=== PATIENT | male | born 1970 | race Caucasian/White ===

== ENCOUNTER 2024-08-13 10:02 | Inpatient (IN) | payer SELFPAY ==
--- NOTE | 2024-08-13 10:16 | PC.PHAR ---
Spoke with [facility] [phone]-They have no allergies and no home medications for this pt, who has been there twice. Nothing administered during his stay.
--- NOTE | 2024-08-13 10:22 | ED.C_ITS ---
HPI - Psych 2 General: Chief Complaint: Psychiatric Symptoms Stated Complaint: 96 Hold, Time Seen by Provider: 08/13/24 10:05 History of Present Illness: 54-year-old man [facility] with police from [facility]. Apparently while he was there he was having tangential and repetitive speech. He was repeating that he was going to . He had some sort of seizure-like activity. He has been placed on a 96-hour hold by the spinning machine tender. Related Data Home Medications Medication Instructions Recorded Confirmed No Known Home Medications 08/13/24 08/13/24 Allergies Allergy/AdvReac Type Severity Reaction Status Date / Time No Known Allergies Allergy Unverified 08/13/24 10:15 Review of Systems 2 General: Reports: ROS unobtainable due to medical condition and ROS unobtainable due to mental status Physical Exam 2 Narrative: EXAM NARRATIVE: General: Alert. no acute distress Skin: Warm, dry Head: Normocephalic, atraumatic. Neck: Supple, trachea midline. Eye: Extraocular movements are intact. Ears, nose, mouth and throat: Oral mucosa moist. Cardiovascular: Regular rate and rhythm, Normal peripheral perfusion. Respiratory: Lungs are clear to auscultation, respirations are non-labored, breath sounds are equal, Symmetrical chest wall expansion. Gastrointestinal: Soft, Nontender, Non distended, Normal bowel sounds. Musculoskeletal: Normal ROM, no deformity. Neurological: Not Alert and oriented to person, place, time, and situation, No focal neurological deficit observed. Psychiatric: confused, agitated. flight of ideas Course 2 Vital Signs: Vital signs: Vital Signs Temperature 98.2 F 08/13/24 10:23 Pulse Rate 94 08/13/24 10:23 Respiratory Rate 18 08/13/24 10:23 Blood Pressure 180/100 08/13/24 10:23 Pulse Oximetry 95 08/13/24 10:23 Oxygen Delivery Me thod Room Air 08/13/24 10:23 MDM - Psych Medical Decision Making Medical decision making: Differential diagnosis for patient with reported psychosis with plan for psychiatric admission including but not limited to and based on the above HPI, review of systems and physical exam: concerns for infection, alcohol intoxication, cardiac issues or other medical problems prior to psychiatric admission. Orders placed to evaluate differential diagnosis based on the above differential, HPI and physical exam labwork, ekg ordered to evaluate the pathologies and to clear the patient medically prior to psychiatric admission Lab Review: Laboratory results were reviewed and interpreted by myself the emergency room physician. - Medically cleared. - EKG shows no ischemic changes. - Blood alcohol level is negative, as well as salicylate and Tylenol. - Drug screen is positive for marijuana only - No signs of infection, urinalysis clear and white count is not elevated - No anemia. - BUN and creatinine are within normal limits. I reviewed the patient's medical record. Consultation: I spoke Dr. Navarrete who is on-call for psychiatry who agrees to admission. Assessment and plan: Psychosis ? Ativan and Geodon were given in the emergency room. -Admission to neuropsychiatric unit for continued evaluation and treatment. - All lab work was reviewed and interpreted personally by myself, the ER physician - Evaluation and treatment of this problem were appropriate in the emergency setting Lab Data 08/13/24 12:09 08/13/24 12:09 Laboratory Results WBC 12.04 10^3/uL (3.29-11.43) H 08/13/24 12:09 RBC 5.05 10^6/uL (3.85-5.65) 08/13/24 12:09 Hgb 15.50 g/dL (11.27-16.99) 08/13/24 12:09 Hct 46.4 % (37-53) 08/13/24 12:09 MCV 91.9 fl (82-101) 08/13/24 12:09 MCH 30.7 pg (27-33) 08/13/24 12:09 MCHC 33.4 g/dL (30-55) 08/13/24 12:09 RDW 13.0 % (12.1-15.1) 08/13/24 12:09 Plt Count 447 10^3/cmm (157-399) H 08/13/24 12:09 MPV 9.7 fL (7.4-10.4) 08/13/24 12:09 Neut % (Auto) 74.0 % 08/13/24 12:09 Lymph % (Auto) 17.8 % 08/13/24 12:09 [place] % (Auto) 6.9 % 08/13/24 12:09 Eos % (Auto) 0.2 % 08/13/24 12:09 Baso % (Auto) 0.9 % 08/13/24 12:09 Neut # (Auto) 8.91 10^3/uL (1.8-7.7) H 08/13/24 12:09 Lymph # (Auto) 2.1 10^3/uL (0.8-4.8) 08/13/24 12:09 [place] # (Auto) 0.8 10^3/uL (0.2-0.9) 08/13/24 12:09 Eos # (Auto) 0.0 10^3/uL (0.0-0.8) 08/13/24 12:09 Baso # (Auto) 0.1 10^3/uL (0.0-0.1) 08/13/24 12:09 Nucleated RBC % (auto) 0 % 08/13/24 12:09 Nucleated RBCs # 0.0 /100WBC 08/13/24 12:09 Sodium 141 mmol/L (136-145) 08/13/24 12:09 Potassium 3.9 mmol/L (3.5-5.1) 08/13/24 12:09 Chloride 107 mmol/L (98-107) 08/13/24 12:09 Carbon Dioxide 25 mmol/L (22-29) 08/13/24 12:09 Anion Gap 12.9 (5-19) 08/13/24 12:09 BUN 9 mg/dL (6-20) 08/13/24 12:09 Creatinine 0.8 mg/dL (0.7-1.2) 08/13/24 12:09 GFR Calculation 101.5 mL/min (90-130) 08/13/24 12:09 Glucose 95 mg/dL (65-115) 08/13/24 12:09 Calculated Osmolality 290 mOsm/kg (285-295) 08/13/24 12:09 Calcium 9.1 mg/dL (8.5-10.5) 08/13/24 12:09 Total Bilirubin 0.2 mg/dL (0.15-1.2) 08/13/24 12:09 AST 9 U/L (0-40) 08/13/24 12:09 ALT 10 U/L (0-41) 08/13/24 12:09 Alkaline Phosphatase 89 U/L (40-130) 08/13/24 12:09 Total Protein 6.4 g/dL (6.6-8.7) L 08/13/24 12:09 Albumin 4.2 g/dL (3.5-5.2) 08/13/24 12:09 Globulin 2.2 g/dL (1.3-4.6) 08/13/24 12:09 TSH 1.88 uIU/mL (0.27-4.20) 08/13/24 12:09 Urine Color Yellow (Yellow) 08/13/24 11:36 Urine Appearance Clear (CLEAR) 08/13/24 11:36 Urine pH 5.5 (5-7) 08/13/24 11:36 Ur Specific [place] 1.013 (1.005-1.030) 08/13/24 11:36 Urine Protein Negative (Negative) 08/13/24 11:36 Urine Glucose (UA) Negative (Normal) 08/13/24 11:36 Urine Ketones Negative (Negative) 08/13/24 11:36 Urine Blood Negative (Negative) 08/13/24 11:36 Urine Nitrate Negative (Negative) 08/13/24 11:36 Urine Bilirubin Negative (Negative) 08/13/24 11:36 Urine Urobilinogen 0.2 mg/dL (Negative) 08/13/24 11:36 Ur Leukocyte Esterase Negative (Negative) 08/13/24 11:36 Urine RBC 0-2 /hpf (0-2) 08/13/24 11:36 Urine WBC 0-5 /hpf (0-5) 08/13/24 11:36 Ur Squamous Epith Cells 0-5 /hpf (0-5) 08/13/24 11:36 Amorphous Sediment Not Reportable 08/13/24 11:36 Urine Bacteria None seen /hpf (NONE) 08/13/24 11:36 Hyaline Casts 0.40 /lpf 08/13/24 11:36 Salicylates < 0.3 mg/dL (3-10) L 08/13/24 12:09 Urine Opiates Screen Negative ng/mL (Negative) 08/13/24 11:36 Acetaminophen < 5.0 ug/mL (10-30) L 08/13/24 12:09 Ur Barbiturates Screen Negative ng/mL (Negative) 08/13/24 11:36 Ur Phencyclidine Scrn Negative ng/mL (Negative) 08/13/24 11:36 Ur Amphetamines Screen Negative ng/mL (Negative) 08/13/24 11:36 U Benzodiazepines Scrn Negative ng/mL (Negative) 08/13/24 11:36 Urine Cocaine Screen Negative ng/mL (Negative) 08/13/24 11:36 U Marijuana (THC) Screen Positive ng/mL (Negative) H 08/13/24 11:36 Ethyl Alcohol < 10 mg/dL (0-10) 08/13/24 12:09 No radiology studies performed this visit Discharge Plan Discharge Patient Disposition: Admitted As Inpatient Clinical Impression: Acute psychosis Condition: Stable Coding Level of Care Code ED Manager Data Warehousing for Sharmaine Gutierrez
[2024-08-13 10:23] VITALS: BP 180/100; PULSE 94; RESP 18; TEMP 36.8; O2SAT 95
[2024-08-13] MEDS: LORazepam 2 mg/mL INJ 1 mL IM (10:32)
[2024-08-13] MEDS: ziprasidone 20 mg/mL SDV IM (10:32)
[2024-08-13] MEDS: water for injection-sterile 10 ML 1.2 ML (10:33)
--- NOTE | 2024-08-13 11:11 | ECG_ITS ---
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
[2024-08-13 12:01] LABS: Bilirubin Urine Negative (Negative); Blood Urine Negative (Negative); Glucose Urine UA Negative (Normal); Ketones Urine Negative (Negative); Leukocyte Esterase Urine Negative (Negative); Nitrate Urine Negative (Negative); Protein Urine Negative (Negative); Specific Gravity, Urine 1.013 (1.005-1.030); Urine Appearance Clear (CLEAR); Urine Color Yellow (Yellow); Urobilinogen Urine 0.2 mg/dL (Negative); pH Urine 5.5 (5-7)
[2024-08-13 12:04] LABS: Bacteria Urine None Seen /hpf; RBC Urine 0-2 /hpf (0-2); Squamous Epithelial Cell Urine 0-5 /hpf (0-5); WBC Urine 0-5 /hpf (0-5)
[2024-08-13 12:08] LABS: Amphetamines Screen Urine Negative (Negative); Barbiturates Screen Urine Negative (Negative); Benzodiazepines Screen Urine Negative (Negative); Cocaine Screen Urine Negative (Negative); Opiate Screen Urine Negative (Negative); PCP Screen Urine Negative (Negative); THC Screen Urine Positive (Negative)
[2024-08-13 12:43] LABS: Basophils # 0.1 10^3/uL (0.0-0.1); Basophils % 0.9 %; Eosinophils % 0.2 %; Hematocrit 46.4 % (37-53); Lymphocytes # 2.1 10^3/uL (0.8-4.8); Lymphocytes % 17.8 %; Mean Corpuscular HGB Conc 33.4 g/dL (30-55); Mean Corpuscular Hemoglobin 30.7 pg (27-33); Mean Corpuscular Volume 91.9 fl (82-101); Mean Platelet Volume 9.7 fL (7.4-10.4); Monocytes # 0.8 10^3/uL (0.2-0.9); Monocytes % 6.9 %; Neutrophils # 8.91 10^3/uL (1.8-7.7); Nucleated Red Blood Cells % 0 %; Platelet Count 447 10^3/cmm (157-399); Red Blood Count 5.05 10^6/uL (3.85-5.65); White Blood Count 12.04 10^3/uL (3.29-11.43)
[2024-08-13 13:11] LABS: Alanine Aminotransferase 10 U/L (0-41); Albumin Level 4.2 g/dL (3.5-5.2); Alkaline Phosphatase 89 U/L (40-130); Anion Gap 12.9 (5-19); Aspartate Amino Transferase 9 U/L (0-40); Blood Urea Nitrogen 9 mg/dL (6-20); Calcium 9.1 mg/dL (8.5-10.5); Carbon Dioxide 25 mmol/L (22-29); Chloride 107 mmol/L (98-107); Globulin 2.2 g/dL (1.3-4.6); Glomerular Filtration Rate 101.5 mL/min (90-130); Glucose 95 mg/dL (65-115); Osmolality Calculated 290 mOsm/kg (285-295); Potassium 3.9 mmol/L (3.5-5.1); Sodium 141 mmol/L (136-145); Thyroid Stimulating Hormone 1.88 uIU/mL (0.27-4.20); Total Bilirubin 0.2 mg/dL (0.15-1.2); Total Protein 6.4 g/dL (6.6-8.7)
[2024-08-13 13:12] LABS: Acetaminophen < 5.0 ug/mL (10-30); Alcohol Level < 10 mg/dL (0-10); Salicylate < 0.3 mg/dL (3-10)
[2024-08-13 15:51] VITALS: BP 127/88; PULSE 92; O2SAT 98
[2024-08-13 16:00] VITALS: BP 136/93; PULSE 95; RESP 16; TEMP 36.9; O2SAT 98
[2024-08-13 16:07] VITALS: BP 127/88; PULSE 92; O2SAT 98
[2024-08-13 19:59] VITALS: BP 122/96; PULSE 108; RESP 18; TEMP 36.5; O2SAT 98
[2024-08-13] MEDS: OLANZapine 5 mg ODT PO (21:07)
[2024-08-13] MEDS: hyDROXYzine 25 mg Capsule 50 MG PO (21:07)
[2024-08-14] VITALS (9 sets, daily range): BP systolic 107–155; BP diastolic 74–103; PULSE 61–107; RESP 16–20; TEMP 36.6–36.7; O2SAT 97–99
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
--- NOTE | 2024-08-14 15:14 | PC.NURSE ---
PT REFUSED 1400 VITALS FOR THIS MATHEMATICS EDUCATION PROFESSOR. PT SAID I JUST WANT TO BE LEFT ALONE UNTIL YOU GET A DOCTOR IN HERE OR A FORMAL COMPLAINT FORM . RESPIRATIONS WERE OBTAINED AT 17. CHARGE NURSE NOTIFIED ABOUT PT REFUSING VITALS AND ABOUT WHAT HE SAID TO THIS MATHEMATICS EDUCATION PROFESSOR.
--- NOTE | 2024-08-14 17:24 | XRR_ITS ---
PROCEDURE INFORMATION: Exam: XR Left Humerus Exam date and time: 08/14/2024 5:50 PM Age: 54 years old Clinical indication: Pain; Upper arm; Left; Additional info: Fall/pain to left arm TECHNIQUE: Imaging protocol: Radiologic exam of the left humerus. Views: 2 or more views. COMPARISON: CR (CHEST, ) 08/14/2024 5:50 PM FINDINGS: Bones/joints: Normal. Soft tissues: Normal. XR/[place] [id number] IMPRESSION: No acute findings.
--- NOTE | 2024-08-14 17:24 | XRR_ITS ---
PROCEDURE INFORMATION: Exam: XR Left Shoulder Exam date and time: 08/14/2024 5:50 PM Age: 54 years old Clinical indication: Pain; Shoulder; Left; Additional info: Fall/pain to shoulder TECHNIQUE: Imaging protocol: Radiologic exam of the left shoulder. Views: 2 or more views. COMPARISON: CR ([facility], ) 08/14/2024 5:50 PM FINDINGS: Bones/joints: Normal. Soft tissues: Normal. XR/XR shoulder LT min 2V* [id number] IMPRESSION: No acute findings.
--- NOTE | 2024-08-14 17:24 | XRR_ITS ---
PROCEDURE INFORMATION: Exam: XR Left Hand Exam date and time: 08/14/2024 5:45 PM Age: 54 years old Clinical indication: Pain; Hand; Left; Additional info: Fall/pain to arm TECHNIQUE: Imaging protocol: Radiologic exam of the left hand. Views: 3 or more views. COMPARISON: No relevant prior studies available. FINDINGS: Bones/joints: Normal. Soft tissues: Normal. XR/XR hand LT min 3V* [id number] IMPRESSION: No acute findings.
--- NOTE | 2024-08-14 17:24 | XRR_ITS ---
PROCEDURE INFORMATION: Exam: XR Left Forearm Exam date and time: 08/14/2024 5:49 PM Age: 54 years old Clinical indication: Pain; Lower or forearm; Left; Additional info: Fall/pain to arm TECHNIQUE: Imaging protocol: Radiologic exam of the left forearm. Views: 2 views. COMPARISON: CR ([facility], ) 08/14/2024 5:45 PM FINDINGS: Bones/joints: Normal. Soft tissues: Normal. XR/XR forearm LT 2V [id number] IMPRESSION: No acute findings.
--- NOTE | 2024-08-14 17:28 | PC.NURSE ---
PT CONTINUED TO VOICE CONCERNS THAT I WANT TO LEAVE, AND HAVING SOMATIC COMPLAINTS. PT STATES HE DOES NOT FEEL WELL. LOCOMOTIVE CRANE OPERATOR HELPER OBTAINED VITALS AND ARE FOLLOWS 145/97 89 18 97% ON RA AT 1655. SECURITY THEN WENT TO PT ROOM TO SPEAK TO PT AND WHEN SECURITY WAS FINISHED HE WALKED DOWN THE PADILLA AND AT THAT TIME STAFF HEARD A LOUD THUD. ALL STAFF IMMEDIATELY RESPONDED PT WAS OBSERVED LAYING THE FLOOR HOLDING HIS LEFT ARM. PT WAS HEARD SPEAKING IN A CHILD LIKE VOICE STATING WHAT HAPPENED WHAT HAPPENED. RN ASKED IF HE FELL AND PT APPEARED TO BE CONFUSED AND STATED I DON'T SEE ANY BLOOD. PT CONTINUED TO HOLD HIS LEFT ARM WHILE HITTING BOTH HIS LEGS STATING I CAN'T FEEL MY LEGS. VITALS WERE OBTAINED POST FALL AT 1701 AND ARE FOLLOWS: 146/92 HR 83, RR 17 97% RA. PT WAS THEN ASSISTED TO THE BED BY SECURITY AND NPU STAFF. PT THEN STARTED YELLING OH MY GOD YOU SMASHED MY LEFT NUT. BLOOD GLUCOSE WAS OBTAINED AND IS 103. PT IMPROVED MORE STAFF CAME INTO ASSIST HIM. PT WAS ASKED WHAT MONTH IT WAS AND STATED GOBBLE GOBBLE. HYDROGRAPHY TEACHER WENT TO SIT WITH PT WHILE THIS RN NOTIFIED DR. WATT OF UNWITNESSED FALL. RN ASSESSED PT FOR INJURIES AND NONE WERE OBSERVED. NEW ORDERS WERE RECEIVED TO OBTAIN STAT CT OF HEAD AND XRAY OF LEFT HUMEROUS 2 VIEW, LEFT SHOULDER 3 VIEW, LEFT FOREARM 2 VIEW AND LEFT HAND 3 VIEW. LIFESTYLE DIRECTOR NOTIFIED. RADIOLOGY NOTIFIED TO SET UP TIME FOR SECURITY AND NPU STAFF TO BRING PT OVER FOR TEST. NPU FOLLOW UP CLERK WAS NOTIFIED VIA PHONE. PT WAS OBSERVED AMBULATING TO WHEELCHAIR WITHOUT ISSUE. PT WAS GIVEN DINNER TRAY AND ATE 100% [address] AND XRAY.
[2024-08-14 17:32] LABS: Glucose Point of Care 103 mg/dL (70-110)
--- NOTE | 2024-08-14 18:06 | PC.NURSE ---
Addendum entered by Bailey Randolph RN 08/14/24 18:08: PT RETURNED TO THE UNIT AT 1808 Original Note: PT STEPPED OFF UNIT FOR CT AT AROUND 1730.
--- NOTE | 2024-08-14 18:21 | PC.NURSE ---
BACK FROM CT AT 1808. CT CALLED AND STATED THAT THE CT COULD NOT BE COMPLETED DUE TO PT STATING IT MAKES ME FEEL LIKE I'M BEING RAPED. NOTIFIED DR. WATT THAT CT WAS UNOBTAINABLE. NEW ORDERS RECEIVED TO MONITOR NEUROLOGICAL STATUS Q 4 HOURS TIMES 24 HOURS. REPORT ANY CHANGES. EDUCATION PROVIDED TO PT AND STAFF.
--- NOTE | 2024-08-14 18:45 | PC.NURSE ---
when taking pt to CT and X RAY pt got freaked out about the CT pt then went down to X RAY and pt began to roll eyes in back of head and blink numerous times and stiffin up his limbs and body was still able to communicate with staff and this designer/writer preformed a sternal rub and pt responded and complied with the CT Scan.
[2024-08-14] MEDS: ondansetron 4 MG Tablet PO (21:03)
[2024-08-14] MEDS: hyDROXYzine 25 mg Capsule 50 MG PO (21:03)
[2024-08-14] MEDS: OLANZapine 5 mg ODT PO (21:03)
[2024-08-15] VITALS (8 sets, daily range): BP systolic 107–151; BP diastolic 74–101; PULSE 61–107; RESP 15–20; TEMP 36.4–36.8; O2SAT 97–100
--- NOTE | 2024-08-15 11:12 | PC.NURSE ---
Patient alerted staff while sitting on bench that he was dizzy. Patient rolling his eyes back into his head. This nurse alerted staff and went to assist patient. Patient slid himself down the bench to the floor. This nurse quickly got pillows for under his head. Staff placed pillows stratigically to help avoid any head damage. Patient assisted to floor on left side where he preceded to shake. Incident lasted about one minute. Patient was alert and oriented immediately afterward, able to tell this nurse his name, , present location, and month and year. Patient's vital signs were taken; VS WNLs. After a few minutes we helped him to a sitting position so as to avoid dizziness. Patient then got covered in goosebumps, said it is happening again. Staff quickly laid down pillows for patient's head. Patient helped to left side. The patient was again asked the orientation questions, of which the patient answered appropriately. Patient was helped to his room. Patient reporting abdominal pain and headache. This nurse offered Tylenol. Patient declined. Patient asked ARIANNA Hung for ativan. This nurse called Dr. Navarrete to make him aware of the situation. Dr. Navarrete was not agreeable to ativan. This nurse administered zyprexa 5mg ODT
[2024-08-15] MEDS: OLANZapine 5 mg ODT PO ×2 (11:20→20:31)
--- NOTE | 2024-08-15 12:43 | PC.NURSE ---
pt resting in bed. respiration rate 15. charge master analyst notified.
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
--- NOTE | 2024-08-15 18:06 | PC.NURSE ---
Patient reports right ear pain. Patient said that he blew the ear drum one month ago. Dr. Navarrete notified via phone.
[2024-08-15] MEDS: hyDROXYzine 25 mg Capsule 50 MG PO (20:31)
--- NOTE | 2024-08-15 21:49 | PC.NURSE ---
IN BED RESTING, SPEECH IS ANIMATED, PRESSURED, FAST AND RAMBLINGS ON ABOUT ALL THE VOICES I HEAR ALL THE TIME. PT REQUEST THAT THIS RN GET THE COMPLAINT HE WROTE YESTERDAY AND GIVE IT BACK TO HIM BECAUSE I AM SO SORRY. I JUST ACT LIKE THAT SOMETIMES WHEN I GET SCARED. CAN YOU GIVE THAT BACK SO I CAN USE IF FOR TOILET PAPER, I DID NOT MEAN ANY OF IT. THE VOICES ARE JUST TOO MUCH. ASSURED PT THAT EVERYTHING IS OKAY AND WE ALL UNDERSTAND THAT IT IS SCARY BEING HERE, IF I CAN FIND THE COMPLAINT I WILL GIVE IT BACK TO HIM IF POSSIBLE. PT IS VERY APOLOGETIC AND REMORSEFUL ABOUT HIS BEHAVIORS YESTERDAY. DENIES SI/HI AND CONTINUES TO ENDORSES HEARING ALL 9 OF MY PERSONALITIES AND VOICES. DENIES PAIN. RATES ANXIETY 7/10 AND DEPRESSION 0/10. SPOKE TO THIS RN A VERY LONG TIME ABOUT HIS TRIGGERS AND EDUCATION PROVIDED ON NEW COPING SKILLS AND THINGS TO DO WHEN HE IS TRIGGERED. VISTARIL 50 MG GIVEN FOR ANXIETY AND TO PROMOTE SLEEP. ZYDIS 5 MG GIVEN FOR INCREASED ANXIETY. THIS RN DID FIND THE COMPLAINT FORM THAT WAS FILLED OUT YESTERDAY AND IT WAS GIVEN BACK TO HIM. ALL QUESTIONS WERE ANSWERED AND SUPPORT WAS VOICED. PT REMAINS VERY APOLOGETIC, RN OFFERS SUPPORT AND RELAYS TO PT IT IS NOT NECESSARY TO KEEP APOLOGIZING.
[2024-08-16 05:52] VITALS: BP 142/87; PULSE 87; RESP 18; TEMP 36.6; O2SAT 100
--- NOTE | 2024-08-16 09:07 | PC.NURSE ---
Patient denies vh, but endorses ah. Patient states he hears voices /, but is aware they are not real. He says they constantly make jokes and have funny, foreign voices. Patient says he did not sleep well last night and was very restless. Patient does say he has a long history of falling and that before he does he tastes pennies in his mouth. He endorses a phobia of being around people and reports this is why he has been staying to himself.
[2024-08-16] MEDS: OLANZapine 5 mg ODT PO ×2 (09:46→21:38)
--- NOTE | 2024-08-16 09:51 | PC.NURSE ---
Patient crying in his room because he says he was triggered by another patient yelling that had to be taken to seclusion. Patient requested medication for anxiety. Refused vistaril, as he said it makes him feel like he drank a whole pot of coffee. Zyprexa 5mg ODT administered. Support voiced and patient reassured that he was safe in the unit. Patient thanked this nurse and stopped crying.
[2024-08-16] MEDS: haloperidol 5 mg Tablet PO ×2 (11:32→17:44)
[2024-08-16 14:00] VITALS: BP 132/81; PULSE 116; RESP 19; TEMP 36.8; O2SAT 98
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
[2024-08-16] MEDS: benztropine 1 mg Tablet PO (20:06)
[2024-08-16] MEDS: propranolol 20 mg Tablet PO (21:38)
[2024-08-16 22:00] VITALS: BP 122/88; PULSE 113; RESP 18; TEMP 36.6; O2SAT 98
[2024-08-17 06:00] VITALS: BP 126/81; PULSE 73; RESP 17; TEMP 36.6; O2SAT 100
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
[2024-08-17 14:00] VITALS: BP 124/85; PULSE 110; RESP 18; TEMP 36.4; O2SAT 97
[2024-08-17] MEDS: haloperidol 5 mg Tablet PO (18:12)
[2024-08-17] MEDS: propranolol 20 mg Tablet PO (20:08)
[2024-08-17] MEDS: OLANZapine 5 mg ODT PO (20:08)
[2024-08-17] MEDS: benztropine 1 mg Tablet PO (20:08)
[2024-08-17 21:11] VITALS: BP 128/83; PULSE 100; RESP 18; TEMP 36.7; O2SAT 100
[2024-08-18 05:44] VITALS: BP 157/107; PULSE 69; RESP 17; TEMP 36.5; O2SAT 100
[2024-08-18] MEDS: OLANZapine 5 mg ODT PO ×2 (09:02→20:22)
[2024-08-18 13:43] VITALS: BP 130/89; PULSE 95; RESP 16; TEMP 37; O2SAT 96
[2024-08-18 20:08] VITALS: BP 146/80; PULSE 77; RESP 18; TEMP 36.4; O2SAT 99
[2024-08-18] MEDS: benztropine 1 mg Tablet PO (20:22)
[2024-08-18] MEDS: propranolol 20 mg Tablet PO (20:22)
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
[2024-08-18] MEDS: OLANZapine 5 mg TABLET PO (21:42)
[2024-08-19 06:00] VITALS: BP 123/81; PULSE 72; RESP 17; TEMP 36.4; O2SAT 100
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
[2024-08-19 13:01] VITALS: BP 123/81; PULSE 72; RESP 17; TEMP 36.4; O2SAT 100
[2024-08-19 13:31] VITALS: BP 146/98; PULSE 114; RESP 16; TEMP 36.6; O2SAT 95
== END 2024-08-19 15:07 | disposition home or self-care (01) | DRG 885 ==
LOC: ER 13:30 → NP 15:26
PROVIDERS: Admitting Provider Psychiatry & Neurology Psychiatry; Emergency Provider Emergency Medicine; Visit Provider Psychiatry & Neurology Psychiatry
DX: F20.0 Paranoid schizophrenia (principal); F90.9 Attention-deficit hyperactivity disorder, unspecified type; F43.10 Post-traumatic stress disorder, unspecified; F60.3 Borderline personality disorder; F31.9 Bipolar disorder, unspecified; F40.00 Agoraphobia, unspecified; F40.10 Social phobia, unspecified; F12.90 Cannabis use, unspecified, uncomplicated
CPT/HCPCS: 36416; 73030; 73060; 73090; 73130; 80053; 80306; 80307; 81001; 82962; 84443; 85025; 93005; 96372; 97150; 97165; 99285; J2060; J3486; Q0162

== ENCOUNTER 2025-05-04 18:33 | Emergency (ER) | payer MEDICAID, SELFPAY ==
[2025-05-04 18:34] VITALS: BP 139/99; PULSE 103; O2SAT 99
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
[2025-05-04 19:47] VITALS: BP 136/94; PULSE 87; O2SAT 98
[2025-05-04 21:05] VITALS: BP 114/73; O2SAT 95
[2025-05-04] MEDS: HYDROcodone-acetaminophen 5-325 mg Tablet 1 TAB PO (21:58)
[2025-05-04 22:01] VITALS: BP 125/85; PULSE 62; RESP 18; O2SAT 97
== END 2025-05-04 22:02 | disposition home or self-care (01) ==
PROVIDERS: Emergency Provider Physician Assistant
DX: S00.83XA Contusion of other part of head, initial encounter (principal); W22.8XXA Striking against or struck by other objects, initial encounter
CPT/HCPCS: 70486; 99284; J9999